=== PATIENT | female | born 1990 | race Caucasian/White ===

== ENCOUNTER 2018-05-26 17:00 | Emergency (ER) | payer BC, OTHER ==
[~2018-05-26] VITALS: Ht 170.2 cm; Wt 97.4 kg
[~2018-05-26 17:00] MED LIST: NO MEDICATION
[2018-05-26 17:15] VITALS: Ht 170.2 cm; Wt 97.4 kg
[2018-05-26] MEDS ORDERED: ACETAMINOPHEN 325 MG TAB PO STA (18:41)
--- NOTE | 2018-05-26 21:08 | ERD ---
ER Documentation Chief Complaint Chief Complaint VAGINAL BLEEDING , CRAMPING HPI 27 year-old [female] coming in today with Chief Complaint: Vaginal bleeding History of Present Illness: Patient with recent miscarriage 1 week ago, approximately with 4-6 weeks , via IVF. Referred by OBGYN to ER. Patient reports taking hydromorphone at 1600 due to pain, states that hydromorphone is left over from surgery 02/2018. Review of systems: All systems were reviewed and are negative except for what is indicated in the history of present illness. Past Medical History: Ulcerative colitis (in remission); positive surgical history includes right ovary removal, , 5 cystectomy, tumor from uterus removed 02/2018 Social History: [Patient denies tobacco, alcohol, elicit drug use] Medications: [Reviewed as documented Nursing Notes] Allergies: NSAIDs, vancomycin, GI symptoms with acetaminophen (nausea) Social Concerns: Denies ROS All systems reviewed and are negative except as per history of present illness. Medications Home Meds Active Scripts Cephalexin* (Keflex*) 500 Mg Capsule, 500 MG PO QID for 7 Days, CAP Prov:HAFSA PALUMBO NP 05/27/18 Reported Medications [No Medication] No Conflict Check 10/28/09 Allergies Allergies: Coded Allergies: Latex (Verified Allergy, Intermediate, RASH,HIVES, 07/02/11) PMhx/Soc History of Surgery: Yes (DC ,EGD) Anesthesia Reaction: No Hx Neurological Disorder: No Hx Respiratory Disorders: No Hx Cardiac Disorders: No Hx Psychiatric Problems: No Hx Miscellaneous Medical Probl: No Hx Alcohol Use: No Hx Substance Use: No Hx Tobacco Use: No Smoking Status: Never smoker Physical Exam Vitals Physical Exam Const: No acute distress Head: Atraumatic Eyes: Normal Conjunctiva ENT: Normal External Ears, Nose and Mouth. Neck: Full range of motion. No meningismus. Resp: Clear to auscultation bilaterally Cardio: Regular rate and rhythm, no murmurs Abd: Soft, non tender, non distended. Normal bowel sounds Skin: No petechiae or rashes Back: No midline or flank tenderness Ext: No cyanosis, or edema Neur: Awake and alert Psych: Normal Mood and Affect Results 24 hrs Laboratory Tests Test 05/26/18 19:09 05/26/18 21:08 White Blood Count 8.6 10^3/ul Red Blood Count 3.79 10^6/ul Hemoglobin 11.4 g/dl Hematocrit 34.8 % Mean Corpuscular Volume 91.8 fl Mean Corpuscular Hemoglobin 30.1 pg Mean Corpuscular Hemoglobin Concent 32.8 g/dl Red Cell Distribution Width 13.4 % Platelet Count 334 10^3/UL Mean Platelet Volume 9.9 fl Immature Granulocytes % 0.600 % Neutrophils % 61.7 % Lymphocytes % 29.5 % Monocytes % 6.8 % Eosinophils % 0.9 % Basophils % 0.5 % Nucleated Red Blood Cells % 0.0 /100WBC Immature Granulocytes # 0.050 10^3/ul Neutrophils # 5.3 10^3/ul Lymphocytes # 2.6 10^3/ul Monocytes # 0.6 10^3/ul Eosinophils # 0.1 10^3/ul Basophils # 0.0 10^3/ul Nucleated Red Blood Cells # 0.0 10^3/ul Beta HCG, Quantitative < 2.4 mIU/ml Urine Color YELLOW Urine Clarity CLOUDY Urine pH 5.0 Urine Specific [place] 1.033 Urine Ketones TRACE mg/dL Urine Nitrite NEGATIVE mg/dL Urine Bilirubin NEGATIVE mg/dL Urine Urobilinogen NEGATIVE mg/dL Urine Leukocyte Esterase NEGATIVE Cathy/ul Urine Microscopic RBC 2 /HPF Urine Microscopic WBC 10 /HPF Urine Squamous Epithelial Cells MODERATE /HPF Urine Mucus MANY /HPF Urine Hemoglobin NEGATIVE mg/dL Urine Glucose NEGATIVE mg/dL Urine Total Protein 1+ mg/dl Current Medications Medications Dose Sig/Iza Start Time Status Last (Trade) Ordered Route PRN Stop Time Admin Dose Reason Admin 650 mg ONCE STAT 05/26/18 DC 05/26/18 Acetaminophen PO 18:41 19:02 (Tylenol 05/26/18 18:43 Tab) Ondansetron 8 mg ONCE STAT 05/26/18 DC 05/26/18 HCl (Zofran ODT 21:31 21:51 Odt) 05/26/18 21:32 1 tab ONCE STAT 05/26/18 DC Acetaminophen PO 22:56 / 05/26/18 22:59 Hydrocodone Bitart ([place] (5/325)) Cephalexin 500 mg ONCE ONCE 05/27/18 DC 05/27/18 (Keflex) PO 01:00 01:00 05/27/18 01:01 Procedures/MDM ED course includes a thorough examination and history. ED course includes labs; CBC, CMP, hCG quantitative, urinalysis, type and rh ED course includes testing; ob ultrasound (abdominal and transvaginal). ED course includes medications; acetaminophen for fever. Initial orders placed by ED Dr. Mendoza, states he spoke to patient's PASSENGER CONDUCTOR by phone for initial orders. ------- Patient reassessment at 2104: We will further investigate source of infection due to fever; influenza and strep ordered. Urinalysis pending ------- Patient reassessment at 2129: Patient inform nurse she is having nausea, will order one-time dose of Zofran. No vomiting noted. Urinalysis showing 10 WBCs, patient educated on possible source of infection. ------- Patient reassessment at 2249: Patient reporting complaint of pain. Requesting pain medication. [place] ordered. Dr. Couch at bedside for assessment and for plan of care. States to add transvaginal ultrasound due to order not been completed earlier. Also given verbal orders to add a wet mount, gonorrhea chlamydia. ------ Patient reassessment at 0: Patient refusing [place]. States she has allergy to [place] due to acetaminophen; patient initially accepted acetaminophen earlier during plan of care when wanting to treat fever when offered Zofran concurrently due to GI complaint of nausea with acetaminophen. Patient is wanting something stronger. Patient is hemodynamically stable, vitals not showing signs of pain, no facial grimacing noted. Due to patient stating that acetaminophen along with Zofran concurrently was acceptable previously, [place] order stands; patient demanding stronger IV medications for pain, patient reports hydromorphone is usually what she takes for pain -----. Dr. Couch informed by phone that patient left AMA. Informed her that ultrasound results are still pending for transvaginal ultrasound. Informed consulting physician that patient educated to follow-up tomorrow. Patient empirically treated for possible urinary tract infection with Keflex; specimen likely not a clean-catch specimen due to large amount of epithelial ----- Otherwise healthy patient presenting with constellation of symptoms likely representing uncomplicated UTI and vaginal bleeding post spontaneous as characterized by history, physical exam findings [radiologic/lab findings]. Full examination and testing not completed due to patient leaving AMA. No respiratory distress, otherwise relatively well appearing and nontoxic. Patient educated on diagnoses, prescriptions [keflex for UTI], follow-up care, return precautions. Strict return precautions given for worsening condition; questions answered discharge. Disposition for AMA with followup in 1 days with PASSENGER CONDUCTOR. HAFSA PALUMBO NP May 26, 2018 21:08
[2018-05-26 21:14] VITALS: BP 131/69; PULSE 70; RESP 18
[2018-05-26] MEDS ORDERED: ONDANSETRON (ODT) 4 MG TAB ODT STA (21:31)
[2018-05-26] MEDS: HYDROCODONE/APAP (5/325) TAB PO STA ×2 (23:19→23:21)
[2018-05-27] MEDS ORDERED: CEPH-443 PO (00:36)
[2018-05-27] MEDS ORDERED: CEPHALEXIN 500 MG CAP PO ONE (01:00)
--- NOTE | 2018-05-27 04:05 | CONS ---
Assessment/Plan Assessment/Plan Assessment/Plan (Daily) 27-year-old 3 para 1021 status post complete complaining of abdominal pain. Transvaginal ultrasound performed which was unremarkable. Hemoglobin 11.4. Beta-hCG 2.4. Urinalysis with 10 white BC. Urine culture done. Cephalexin 500 mg every 6 hours p.o. given. Patient received Dilaudid for control of pain. Ultrasound, lab results and observation for a few hours discussed by nurse practitioner. She expressed understanding, however patient signed AMA and left the hospital. I strongly recommend follow-up in 2- 3 days in office. Consultation Date/Type/Reason Admit Date/Time Date of Consultation: May 26, 2018 Type of Consult [employer]PRENTICE Reason for Consultation Abdominal pain Requesting Provider: HAFSA PALUMBO NP Date/Time of Note DATE: 05/26/18 Hx of Present Illness 27 year-old 021 presented to emergency department with complaint of abdominal pain. She states recently had spontaneous miscarriage. She got via transferring egg as a surrogate mother. She states was approximately 4-5 weeks , had severe vaginal bleeding with clot passing last week. Currently she has only dark brownish discharge. She denies nausea, vomiting, shortness of breath, chest pain, headache, visual changes, vaginal bleeding or LOF. Review of systems: All systems were reviewed and are negative except for what is indicated in the history of present illness. Past Medical History: Ulcerative colitis (in remission) Past surgical history includes right oophorectomy and salpingectomy, , Social History: She denies tobacco alcohol or drug use Medications: vitamin Allergies: NSAIDs, vancomycin, GI symptoms with acetaminophen Past Medical History Home Meds Active Scripts Cephalexin* (Keflex*) 500 Mg Capsule, 500 MG PO QID for 7 Days, CAP Prov:HAFSA PALUMBO NP 05/27/18 Reported Medications [No Medication] No Conflict Check 10/28/09 Allergies: Coded Allergies: Latex (Verified Allergy, Intermediate, RASH,HIVES, 07/02/11) Social History Smoking Status: Never smoker Exam/Review of Systems Exam Vitals Vital Signs Date Temp Pulse Resp B/P (MAP) Pulse Ox O2 O2 Flow FiO2 Time Delivery Rate 05/26/18 98.2 70 18 131/69 100 Room Air 21:14 (89) Constitutional: alert, oriented Psych: nl mood/affect Head: normocephalic Neck: supple, non-tender Respiratory: clear to auscultation Gastrointestinal: soft, nl liver, spleen Genitourinary - Female: other (External genitalia within normal limits. Vagina with minimal discharge no brownish discharge or bleeding seen. Cervix no cervical motion tenderness. Uterus: Normal size mobile with minimal tenderness. Adnexa no palpable mass bilateral.) Musculoskeletal: nl extremities to inspection, nl gait and stance Neurological: nl mental status, nl speech Results Result Diagram: 05/26/18 1909 Results 24hrs Laboratory Tests Test 05/26/18 19:09 05/26/18 21:08 White Blood Count 8.6 Red Blood Count 3.79 L Hemoglobin 11.4 L Hematocrit 34.8 L Mean Corpuscular Volume 91.8 Mean Corpuscular Hemoglobin 30.1 Mean Corpuscular Hemoglobin Concent 32.8 Red Cell Distribution Width 13.4 Platelet Count 334 Mean Platelet Volume 9.9 Immature Granulocytes % 0.600 H Neutrophils % 61.7 Lymphocytes % 29.5 Monocytes % 6.8 Eosinophils % 0.9 Basophils % 0.5 Nucleated Red Blood Cells % 0.0 Immature Granulocytes # 0.050 H Neutrophils # 5.3 Lymphocytes # 2.6 Monocytes # 0.6 Eosinophils # 0.1 Basophils # 0.0 Nucleated Red Blood Cells # 0.0 Beta HCG, Quantitative < 2.4 Urine Color YELLOW Urine Clarity CLOUDY A Urine pH 5.0 Urine Specific [place] 1.033 H Urine Ketones TRACE A Urine Nitrite NEGATIVE Urine Bilirubin NEGATIVE Urine Urobilinogen NEGATIVE Urine Leukocyte Esterase NEGATIVE Urine Microscopic RBC 2 Urine Microscopic WBC 10 H Urine Squamous Epithelial Cells MODERATE Urine Mucus MANY A Urine Hemoglobin NEGATIVE Urine Glucose NEGATIVE Urine Total Protein 1+ H ERIKA GOSS May 27, 2018 03:52
== END 2018-05-27 00:37 | disposition left against medical advice (07) ==
LOC: FTE 17:00
DX: N93.9 Abnormal uterine and vaginal bleeding, unspecified (principal); R10.2 Pelvic and perineal pain; Z91.040 Latex allergy status
CPT/HCPCS: 36415; 76801; 76817; 81001; 84702; 85025; 86900; 86901; 87070; 87086; 87400; 87880